=== PATIENT | female | born 1980 | race African-American/Black ===

== ENCOUNTER 2019-06-02 23:54 | Emergency (ER) | payer MEDICAID ==
[~2019-06-02] VITALS: Ht 157.5 cm; Wt 70.8 kg
--- NOTE | 2019-06-03 00:15 | NUR ---
PT BIBRA "FEELING CONFUSED" PT ADMITS NOT BEING MED COMPLIANT ON ABILIFY AND XANAX. DENIES SI/HI AT THIS TIME. PT AO, RR EVEN AND UNLABORED. NO SOB NOTED. NO NVD AT THIS TIME. PT PLACED ON MONITOR WAITING FOR MD MIRAMONTES.
--- NOTE | 2019-06-03 00:55 | NUR ---
URINE COLLECTED. SENT TO LAB
[2019-06-03] MEDS ORDERED: IV NS 0.9% 1,000 ML BAG IV ONE (01:00)
[2019-06-03 01:01] LABS: HEMATOCRIT 39 % (33-45); HEMOGLOBIN 12.6 g/dL (11.5-14.8); LYMPHOCYTES # (AUTO) 0.9 /CMM (0.8-4.8); LYMPHOCYTES % (AUTO) 16.4 % (20.0-44.0); MEAN CORPUSCULAR HGB CONC 33 g/dl (31.0-36.0); MEAN CORPUSCULAR VOLUME 91 fL (82-100); MONOCYTES # (AUTO) 0.1 /CMM (0.1-1.30); MONOCYTES % (AUTO) 2.4 % (2.0-12.0); NEUTROPHILS # (AUTO) 4.5 /CMM (1.8-8.9); NEUTROPHILS % (AUTO) 81.2 % (43.0-81.0); PLATELET COUNT (AUTO) 347 /CMM (150-450); RED BLOOD CELL COUNT(AUTO) 4.25 MIL/uL (4.0-5.2); WHITE BLOOD COUNT (AUTO) 5.5 K/uL (4.3-11.0)
[2019-06-03 01:05] LABS: APPEARANCE,URINE Clear (CLEAR); BILIRUBIN,URINE Negative (NEGATIVE); BLOOD, URINE Negative Ery/uL (NEGATIVE); COLOR,URINE Yellow (YELLOW); KETONES,URINE 15 (NEGATIVE); LEUKOCYTE ESTERASE ,URINE Negative (NEGATIVE); NITRITE, URINE Negative (NEGATIVE); PROTEIN,URINE Negative (NEGATIVE); UGLUCOSE 500 MG/DL mg/dL (NEGATIVE); UROBILINOGEN,URINE 0.2 EU/dL (0.2)
[2019-06-03 01:14] LABS: CALCIUM, SERUM 8.9 mg/dL (8.5-10.1); CARBON DIOXIDE 22 mmol/L (21-32); CHLORIDE 105 mmol/L (98-107); CREATININE 0.7 mg/dL (0.6-1.3); GLUCOSE 162 mg/dL (74-106); POTASSIUM 3.6 mmol/L (3.5-5.1); SODIUM SERUM 142 mmol/L (136-145); UREA NITROGEN, BLOOD 9 mg/dL (7-18)
[2019-06-03 01:21] LABS: BACTERIA,URINE Few /HPF (None Seen); RBC,URINE 0-2 /HPF (0-2); SQUAMOUS EPITHELIAL CELL,UR Few /HPF (None Seen)
[2019-06-03 01:24] LABS: ALANINE AMINOTRANSFERASE 33 U/L (12-78); ALBUMIN 3.5 g/dL (3.4-5.0); ALCOHOL, BLOOD 308 mg/dL (0-0); ALKALINE PHOSPHATASE 75 U/L (46-116); ASPARTATE AMINOTRANSFERASE 24 U/L (15-37); BILIRUBIN,DIRECT 0.1 mg/dL (0.0-0.2); BILIRUBIN,TOTAL 0.2 mg/dL (0.2-1.0); TOTAL PROTEIN, SERUM 7.8 g/dL (6.4-8.2)
[2019-06-03 01:26] LABS: ACETAMINOPHEN 0 ug/ml (10-30); SALICYLATE 1.7 mg/dL (2.8-20.0)
[2019-06-03 01:29] LABS: SERUM AMMONIA 27 umol/L (11-32)
[2019-06-03 03:10] LABS: THYROID STIMULATING HORMONE 0.279 uIU/mL (0.358-3.74)
[2019-06-03] MEDS ORDERED: ARIPIPRAZOLE 2 MG TABLET ONE (05:02)
[2019-06-03] MEDS ORDERED: ARIPIPRAZOLE 5 MG TABLET PO ONE (05:30)
--- NOTE | 2019-06-03 07:22 | NUR ---
REPORT GIVEN TO TERRY VALERIO FOR CONTINUITY OF CARE.
--- NOTE | 2019-06-03 07:23 | NUR ---
REPORT RECEIVED FROM NICHOLAS STEWART FOR JAVAN
--- NOTE | 2019-06-03 11:48 | NUR ---
CALLED LAB FOR ETOH DRAW
--- NOTE | 2019-06-03 11:51 | NUR ---
Social service consult requested by Dr. Sinclair for suicidal ideations. Pt. is a 38 year old female who was brought to [facility] ED for ETOH. Pt's serum alcohol level was 300 on arrival. Pt. is alert and oriented x 4. Pt. appears disheveled. Pt. is not cooperative and forthcoming with information. Pt. gets belligerent and starts yelling, " I want food." Pt. has a psychiatric history. Pt. takes Abilify and Lexapro but is non-complaint with her medication. Pt. states she is suicidal with a plan to stab herself. Pt. is willing to go voluntary to [facility]. SW to fax clinicals to [facility] .
--- NOTE | 2019-06-03 12:53 | NUR ---
LEONARDO unable to fax clinicals to [facility] because after second blood draw for alcohol level, pt's alcohol level is 354 higher than when pt. came into the ED yesterday. Pt. has been drinking wine at bedside. LEONARDO informed ED CRN Gener who checked pt's belongings and found a box of chardonnay that pt. has been drinking since being at [facility] ED. Pt. will remain in ED until sober.
--- NOTE | 2019-06-03 13:00 | NUR ---
PT BELONGINGS SEARCHED, ALL ETOH REMOVED FROM BED, PT HAS BEEN SEEN BY RADHA WARE, PT HAS BEEN COOPERATIVE WITH CARE. DR. DE LOS SANTOS AWARE.
--- NOTE | 2019-06-03 15:20 | NUR ---
PT IN BED AWAKE, PATIENT APPEARS MORE SOBER, DENIES AND S/I AND H/I. REMINDED PT THAT TO GO VOLUNTARY AT [facility] ETOH LEVEL HAS TO BE BELOW AT A CERTAIN LEVEL, PT IS AGREEABLE.
--- NOTE | 2019-06-03 16:28 | NUR ---
PT REQUESTED FOR FOOD, GIVEN SANDWICH AND DRINKS. PT IN BED, VSS, NAD NOTED
--- NOTE | 2019-06-03 18:00 | NUR ---
PT REQUESTED FOR WATER, SITTER AT BEDSIDE FOR SAFETY, PATIENT DENIES ANY S/I OR H/I. PT COOPERATIVE WITH CARE. PT IS AWARE THAT SHE WILL BE GOING TO [facility]OL[facility] WHEN ETOHL LEVEL IS APPROPRIATE FOR FACILITY
--- NOTE | 2019-06-03 18:30 | NUR ---
PT WANTED TO LEAVE, PT DID NOT WANT TO STAY, PT REFUSED TO SIGN ALL PAPERWORK, ALL BELONGINGS WITH PATIENT, PATIENT DENIES AND S/I OR H/I, PT AMBULATORY WITH STEADY GAIT, PT APPEARS SOBER.
[2019-06-03 19:24] VITALS: BP 119/85
== END 2019-06-03 19:25 | disposition left against medical advice (07) ==
LOC: ER 06-03
DX: F10.121 Alcohol abuse with intoxication delirium (principal); R45.851 Suicidal ideations; R41.0 Disorientation, unspecified; R94.31 Abnormal electrocardiogram [ECG] [EKG]; Z60.2 Problems related to living alone; Z59.0 Homelessness; Y90.8 Blood alcohol level of 240 mg/100 ml or more
CPT/HCPCS: 36415; 70450; 80048; 80076; 80305; 80307 ×2; 80329; 81001; 82140; 84443; 84484; 84703; 85025; 85730; 93005; 96360; 99284; G0480; J7030; 81000-TC